=== PATIENT | female | born 1985 | race Caucasian/White ===

== ENCOUNTER → 2017-05-10 | Outpatient (CLI) | payer BC ==
[2017-05-11 11:29] LABS: ANA Pattern Homogeneous; ANA Pattern 2 Nucleolar
== END | disposition home or self-care (01) ==
LOC: LABWHC1 17:24
PROVIDERS: ATTEND Specialist
DX: L71.8 Other rosacea (principal); L70.0 Acne vulgaris; L25.9 Unspecified contact dermatitis, unspecified cause
CPT/HCPCS: 36415; 86038; 86039

== ENCOUNTER 2019-02-27 02:20 | Inpatient (IN) | payer BC ==
[2019-02-27] MEDS ORDERED: TERBUTALINE 1 MG/ML VIAL SQ PRN (04:08)
[2019-02-27] MEDS ORDERED: LIDOCAINE 0.5% (PF) 5 MG/ML (50 ML SDV) SQ PRN (04:08)
[2019-02-27] MEDS ORDERED: METHYLERGONOVINE 0.2 MG/ML 1 ML AMP IM PRN (04:08)
[2019-02-27] MEDS ORDERED: CARBOPROST TROMETHAMINE 250 MCG/ML 1 ML AMP IM PRN (04:08)
[2019-02-27] MEDS ORDERED: OXYTOCIN 10 UNIT/ML 1 ML VIAL IM PRN (04:08)
[2019-02-27] MEDS ORDERED: BUTORPHANOL 1 MG/ML 1 ML VIAL IV PRN (04:09)
[2019-02-27] MEDS ORDERED: OXYTOCIN 30 UNITS/500 ML NS 30 UNIT in SALINE 1 500ML.BAG IV SCH (04:15)
[2019-02-27] MEDS: LACTATED RINGERS 1,000 ML IV SCH ×2 (04:40→07:26)
[2019-02-27 04:44] LABS: Basophils % (A) 0 %; Eosinophils # (A) 0.1 k/uL (0-0.7); Eosinophils % (A) 1 %; HCT 34.4 % (34.0-46.0); HGB 11.8 gm/dL (11.4-16.0); Lymphocytes # (A) 1.9 k/uL (1.0-4.8); Lymphocytes % (A) 20 %; MCH 32.7 pg (25.0-35.0); MCHC 34.4 g/dL (31.0-37.0); MCV 95.2 fL (80.0-100.0); Mean Platelet Volume 8.3; Monocytes # (A) 0.5 k/uL (0-1.0); Monocytes % (A) 5 %; Neutrophils % (A) 72 %; Platelet Count 268 k/uL (150-450); RBC 3.62 m/uL (3.80-5.40); RDW 13.6 % (11.5-15.5); WBC 9.7 k/uL (3.8-10.6)
[2019-02-27] MEDS ORDERED: ROPIVACAINE 100 MG, fentaNYL (PF) 200 MCG in SODIUM CHLORIDE 0.9% 76 ML EPIDURAL ONE (06:56)
[2019-02-27] MEDS ORDERED: diphenhydrAMINE 50 MG CAP PO PRN (12:05)
[2019-02-27] MEDS ORDERED: HYDROCORTISONE 2.5% RECTAL CREAM 30 GM TUBE RECTAL PRN (12:05)
[2019-02-27] MEDS ORDERED: ZOLPIDEM 5 MG TAB PO PRN (12:05)
[2019-02-27] MEDS ORDERED: diphenhydrAMINE 25 MG CAP PO PRN (12:05)
[2019-02-27] MEDS ORDERED: WITCH HAZEL 1 EACH MED..PAD TOPICAL PRN (12:05)
[2019-02-27] MEDS ORDERED: diphenhydrAMINE 50 MG/ML 1 ML VIAL IVP PRN ×2 (12:05)
[2019-02-27] MEDS ORDERED: LANOLIN CREAM 5 GM TUBE TOPICAL PRN (12:05)
[2019-02-27] MEDS ORDERED: SIMETHICONE 80 MG CHEWABLE PO PRN (12:05)
[2019-02-27] MEDS ORDERED: BENZOCAINE/MENTHOL SPRAY 1 GM/SPRAY AEROSOL TOPICAL PRN (12:05)
--- NOTE | 2019-02-27 12:08 | P.HPOB ---
History of Present Illness H&P Date: 02/27/19 Chief Complaint: Labor 34-year-old presented at 38 weeks and 5 days in active labor. Her cervix was 4 cm dilated, 60% effaced, and -2 station. She is selvin every 2 minutes. heart tones 140 with moderate variability and reactive. She was admitted for labor by Dr. Villeda. Review of Systems All systems: negative Constitutional: Denies chills, Denies fever Eyes: denies blurred vision, denies pain Ears, nose, mouth and throat: Denies headache, Denies sore throat Cardiovascular: Denies chest pain, Denies shortness of breath Respiratory: Denies cough Gastrointestinal: Denies abdominal pain, Denies diarrhea, Denies nausea, Denies vomiting Genitourinary: Denies dysuria, Denies hematuria Musculoskeletal: Denies myalgias Integumentary: Denies pruritus, Denies rash Neurological: Denies numbness, Denies weakness Psychiatric: Denies anxiety, Denies depression Endocrine: Denies fatigue, Denies weight change Past Medical History Past Medical History: No Reported History Additional Past Medical History / Comment(s): [place] history: Her first 3 pregnancies were vaginal deliveries. This is her fourth . She's had care with me since 8 weeks gestation. Blood type A+, antibodies negative, rubella immune, RPR nonreactive, hepatitis B negative. Normal anatomy ultrasound, normal 1 hour glucose tolerance test and GBS negative. She did have a few ultrasounds over the last few weeks that showed polyhydramnios at 33 cm of fluid. Torch titers were negative. History of Any Multi-Drug Resistant Organisms: None Reported Past Surgical History: Breast Surgery Additional Past Surgical History / Comment(s): augmentation Past Anesthesia/Blood Transfusion Reactions: No Reported Reaction Past Psychological History: Anxiety Smoking Status: Never smoker Past Alcohol Use History: None Reported Past Drug Use History: None Reported - Past Family History Father Family Medical History: Hypertension Medications and Allergies Home Medications Medication Instructions Recorded Confirmed Type Vit No.124/Iron/Folic 1 caplet PO DAILY 07/31/14 02/27/19 History [ Vitamin Tablet] Allergies Allergy/AdvReac Type Severity Reaction Status Date / Time strawberry AdvReac Rash/Hives Verified 02/27/19 02:49 Exam Osteopathic Statement: *. No significant issues noted on an osteopathic structural exam other than those noted in the History and Physical/Consult. Vital Signs Temp Pulse Resp BP Pulse Ox 02/27/19 04:00 98.1 F 97 18 115/81 99 Intake and Output 02/26/19 02/27/19 02/27/19 22:59 06:59 14:59 Other: # Voids 1 Weight 66.224 kg Heart: Regular rate and rhythm Lungs: Clear to auscultation bilaterally Abdomen: Soft, nontender between contractions Extremities: Negative Homans sign Results Result Diagrams: 02/27/19 04:30 Abnormal Lab Results - Last 24 Hours (Table) 02/27/19 Range/Units 04:30 RBC 3.62 L (3.80-5.40) m/uL Assessment and Plan (1) Normal labor Current Visit: Yes Status: Acute Code(s): O80 - ENCOUNTER FOR FULL-TERM UNCOMPLICATED DELIVERY; Z37.9 - OUTCOME OF DELIVERY, UNSPECIFIED SNOMED Code(s): 44947601 Plan: 1. Admitted for labor by Dr. Villeda. 2. Patient was given epidural for pain control 3. Anticipate normal vaginal delivery
[2019-02-27] MEDS ORDERED: OXYTOCIN 20 UNITS/1000 ML NS 1,000 ML IV SCH (12:15)
[2019-02-27] MEDS: IBUPROFEN 600 MG TAB PO PRN ×2 (14:20→20:43)
[2019-02-27] MEDS: ACETAMINOPHEN TAB 325 MG TAB PO PRN ×2 (16:57→23:45)
[2019-02-27] MEDS: SENNOSIDES-DOCUSATE SODIUM 1 EACH TAB PO SCH (20:34)
[2019-02-27 21:36] VITALS: RESP 16
[2019-02-28] MEDS: IBUPROFEN 600 MG TAB PO PRN (04:46)
[2019-02-28 06:21] LABS: Basophils % (A) 0 %; Eosinophils # (A) 0.1 k/uL (0-0.7); Eosinophils % (A) 1 %; HCT 32.1 % (34.0-46.0); HGB 10.8 gm/dL (11.4-16.0); Lymphocytes # (A) 2.2 k/uL (1.0-4.8); Lymphocytes % (A) 19 %; MCH 32.4 pg (25.0-35.0); MCHC 33.7 g/dL (31.0-37.0); MCV 96.3 fL (80.0-100.0); Mean Platelet Volume 8.7; Monocytes # (A) 0.5 k/uL (0-1.0); Monocytes % (A) 5 %; Neutrophils # (A) 8.6 k/uL (1.3-7.7); Neutrophils % (A) 74 %; Platelet Count 194 k/uL (150-450); RBC 3.34 m/uL (3.80-5.40); RDW 13.5 % (11.5-15.5); WBC 11.6 k/uL (3.8-10.6)
[2019-02-28] MEDS: SENNOSIDES-DOCUSATE SODIUM 1 EACH TAB PO SCH (07:49)
[2019-02-28] MEDS: ACETAMINOPHEN TAB 325 MG TAB PO PRN (07:50)
[2019-02-28 07:56] VITALS: BP 117/61; PULSE 70; TEMP 98.3
--- NOTE | 2019-02-28 08:36 | P.DS ---
Providers Date of admission: 02/27/19 04:09 Expected date of discharge: 02/28/19 Attending physician: Ashtyn Jaar Primary care physician: Stated None - Discharge Diagnosis(es) (1) Normal labor Current Visit: Yes Status: Resolved (2) Normal vaginal delivery Current Visit: No Status: Acute Hospital Course: Patient presented in active labor. She underwent a normal vaginal delivery with Pitocin augmentation and an epidural. her course was uncomplicated. She'll be discharged home day #1 in stable condition to follow-up with me in 6 weeks. She denies nausea, vomiting, chest pain, shortness of breath or any calf pain. Plan - Discharge Summary New Discharge Prescriptions: New Ibuprofen [Motrin] 600 mg PO Q6HR PRN #30 tab PRN Reason: Mild Pain Or Fever >= 100.5 No Action Vit No.124/Iron/Folic [ Vitamin Tablet] 1 caplet PO DAILY Discharge Medication List Vit No.124/Iron/Folic [ Vitamin Tablet] 1 caplet PO DAILY 07/31 [History] Ibuprofen [Motrin] 600 mg PO Q6HR PRN #30 tab 02/28/19 [Rx] Follow up Appointment(s)/Referral(s): Ashtyn Jara DO [Doctor of Osteopathic Medicine] - 6 Weeks Discharge Disposition: HOME SELF-CARE
--- NOTE | 2019-02-28 08:42 | P.PROBDLV ---
Vaginal Delivery Note - . Vaginal Delivery Note: 34-year-old presented at 38 weeks and 5 days in active labor. Her cervix changed from 3 cm to 4 cm in triage, 60% effaced, and -2 station. She is selvin every 2-4 minutes. heart tones 140 with moderate variability and reactive. She did get an epidural when she was uncomfortable. Amniotomy was performed at 8:45 AM and green meconium fluid was seen. She had been 4-5 cm for at least 3 hours so Pitocin augmentation was started. Her cervix was com pletely dilated at 1145. She pushed, alert a viable female infant over intact perineum under epidural anesthesia. Head delivered OA, anterior shoulder delivered gentle downward guidance for by posterior shoulder and rest of body. Nose mouth bulb suctioned, cord clamped and cut, placed mother's abdomen. Apgars 8, 9, weight 6 lbs. 4 oz. Placenta delivered spontaneously, intact with three-vessel cord at 1157. Vagina, cervix, and perineum were inspected. First- degree midline laceration was repaired with 3-0 Vicryl. Estimated blood loss 200 mL. Mother and baby in stable condition.
== END 2019-02-28 12:50 | disposition home or self-care (01) | DRG 807 ==
LOC: FBPOP 02:20 → 4FBP 04:09
PROVIDERS: ADMIT Obstetrics & Gynecology; ATTEND Obstetrics & Gynecology
PROC: 10E0XZZ Delivery of Products of Conception, External Approach (ICD-10-PCS; principal; 2019-02-27)
PROC: 0HQ9XZZ Repair Perineum Skin, External Approach (ICD-10-PCS; 2019-02-27)
PROC: 00HU33Z Insertion of Infusion Device into Spinal Canal, Percutaneous Approach (ICD-10-PCS; 2019-02-27)
PROC: 3E0R3BZ Introduction of Anesthetic Agent into Spinal Canal, Percutaneous Approach (ICD-10-PCS; 2019-02-27)
DX: O77.0 Labor and delivery complicated by meconium in amniotic fluid (principal); Z37.0 Single live birth; O40.3XX0 Polyhydramnios, third trimester, not applicable or unspecified; O70.0 First degree perineal laceration during delivery; Z3A.38 38 weeks gestation of pregnancy; Z86.59 Personal history of other mental and behavioral disorders; Z91.018 Allergy to other foods; Z82.49 Family history of ischemic heart disease and other diseases of the circulatory system
CPT/HCPCS: 59025; 85025; 86850; 86900; 86901; 99213

== ENCOUNTER → 2021-12-04 | Outpatient (CLI) | payer BC ==
--- NOTE | 2021-12-04 09:31 | USB ---
Reason for Exam: Clinical finding. Indicated Problems: Pain of the right side (Focal) for 1 Month(s) : Prior. Palpable abnormality of the right side for 1 Month(s). Findings: The lateral section of the breast of the right breast, the area of palpable concern of the right breast, the axilla of the right breast and the retroareolar of the right breast were scanned. 2 oval hypoechoic areas with some central color flow in the subcutaneous tissue at the level of the palpable abnormalities. This is at 9:00 position 8 cm from the nipple and 9:00 position 9 cm from the nipple corresponding to the palpable regions. These have diminished in size by palpation according to the patient. Findings appear compatible with small lymph nodes. Continued monitoring is recommended. Follow-up exam in 3 months can be performed. Overall Assessment: Probably benign, BI-RAD 3 Management: Diagnostic Breast Ultrasound of the right breast in 3 months. A clinical breast exam by your physician is recommended on an annual basis and results should be correlated with mammographic findings. This exam should not preclude additional follow-up of suspicious palpable abnormalities. ??Results were given to the patient verbally at the time of exam. Electronically signed and approved by: Feliberto Clements D.O. Radiologis
== END | disposition home or self-care (01) ==
LOC: RADUSWWP 08:55
PROVIDERS: ATTEND Obstetrics & Gynecology Obstetrics
DX: N64.4 Mastodynia (principal); N63.0 Unspecified lump in unspecified breast

== ENCOUNTER → 2022-03-24 | Outpatient (CLI) | payer BC ==
--- NOTE | 2022-03-24 12:00 | USB ---
Reason for Exam: Follow-up at short interval from prior study. Risk Values: Deonna 5 year model risk: 0.2%. NCI Lifetime model risk: 6.9%. Technique: Method: Targeted. Prior Study Comparison: 12/04/2021 Right US breast limited RT, [facility]. Findings: The area of palpable concern of the right breast, the axilla of the right breast and the retroareolar of the right breast were scanned. Normal-appearing lymph nodes are seen within the right breast improved from prior study.. Overall Assessment: Benign, BI-RAD 2 Management: Screening Mammogram of both breasts at age 42. A clinical breast exam by your physician is recommended on an annual basis and results should be correlated with mammographic findings. This exam should not preclude additional follow-up of suspicious palpable abnormalities. Results were given to the patient verbally at the time of exam. Electronically signed and approved by: Francisco Beckett M.D. Radiologis
== END | disposition home or self-care (01) ==
LOC: RADUSWWP 10:55
PROVIDERS: ATTEND Obstetrics & Gynecology Obstetrics
DX: R92.8 Other abnormal and inconclusive findings on diagnostic imaging of breast (principal)

== ENCOUNTER → 2023-06-22 | Outpatient (CLI) | payer OTHER ==
--- NOTE | 2023-06-22 09:59 | CT ---
EXAMINATION TYPE: CT soft tissue neck w con CT DLP: 348 mGycm, Automated exposure control for dose reduction was used. DATE OF EXAM: 06/22/2023 9:23 AM COMPARISON: None. CLINICAL INDICATION:Female, 38 years old with history of R22.1 LOCALIZED SWELLING, MASS AND LUMP, NEC K; PHH, left sided lymph swelling TECHNIQUE: Standard enhanced CT of the neck. Axial sections with coronal and sagittal reformats were obtained. Contrast used:100 mL of Isovue 300 with IV Contrast, (None if empty) Oral contrast used: (None if empty) FINDINGS: Brain: Visualized portions are grossly unremarkable. Orbits: Unremarkable Sinuses: Grossly unremarkable. Spaces of the neck: Clear and symmetric. No finding within the left neck to correlate with patient's symptomology. There is no palpable marker place. Musculoskeletal: No acute osseous pathology. Lymph nodes: Multiple nonenlarged lymph nodes are seen along both anterior chains of the neck. Vascular structures: Visualized major arteries are patent without evidence of aneurysm. Thoracic Inlet/airway: Airway is patent. Lung apices are clear. Soft tissues/Thyroid: Thyroid and remainder of the soft tissues are unremarkable. Other: none. IMPRESSION No evidence for lymphadenopathy or mass. No palpable marker was placed for correlation.
== END | disposition home or self-care (01) ==
LOC: RADCTMAIN 08:55
PROVIDERS: ATTEND Family Medicine
DX: R22.1 Localized swelling, mass and lump, neck (principal)
CPT/HCPCS: 70491; Q9967